=== PATIENT | female | born 1990 | race Caucasian/White ===

== ENCOUNTER 2022-03-06 09:51 | Inpatient (IN) | payer BC ==
[~2022-03-06] VITALS: Ht 162.6 cm; Wt 63.5 kg
[2022-03-06] MEDS ORDERED: ONDANSETRON HCL INJ 2MG/ML 2ML 2 MG/ML VIAL IV STA (10:06)
[2022-03-06] MEDS ORDERED: SODIUM CHLORIDE 0.9% 500ML 500 ML IV ONE (10:30)
[2022-03-06 10:35] LABS: BASOPHILS % 0.3 % (0.0-1.0); EOSINOPHILS % 0.3 % (0.0-6.0); HEMOGLOBIN 16.5 g/dL (12.0-16.0); LYMPHOCYTES # (AUTO) 0.7 (1.0-3.2); LYMPHOCYTES % 10.1 % (18.0-39.1); MEAN CORPUSCULAR HEMOGLOBIN 31.7 pg (28-32); MEAN CORPUSCULAR HGB CONC 32.4 g/dL (31-35); MEAN CORPUSCULAR VOLUME 97.9 fL (81-99); MONOCYTES # (AUTO) 0.3 (0.2-0.8); MONOCYTES % 4.6 % (4.4-11.3); NEUTROPHILS # (AUTO) 6.2 (2.1-6.9); NEUTROPHILS % 84.3 % (38.7-80.0); PLATELET COUNT 174 x10e3/uL (140-360); RED BLOOD COUNT 5.21 x10e6/uL (3.6-5.1); RED CELL DISTRIBUTION WIDTH 13.1 % (11.7-14.4)
[2022-03-06 10:49] LABS: INR 0.95; PARTIAL THROMBOPLASTIN TIME 29.2 seconds (23.8-35.5); PROTHROMBIN TIME 13.5 seconds (11.9-14.5)
[2022-03-06 11:15] LABS: ALANINE AMINOTRANSFERASE 11 IU/L (0-55); ALBUMIN 4.5 g/dL (3.5-5.0); ALKALINE PHOSPHATASE 61 IU/L (40-150); ANION GAP 13.3 mmol/L (8-16); BLOOD UREA NITROGEN 16 mg/dL (7-26); BUN/CREATININE RATIO 6 (6-25); CALCIUM 8.3 mg/dL (8.4-10.2); CARBON DIOXIDE 15 mmol/L (22-29); CHLORIDE 113 mmol/L (98-107); CREATINE KINASE 139 IU/L (29-168); CREATININE, SERUM 2.54 mg/dL (0.57-1.11); GLUCOSE 162 mg/dL (74-118); MAGNESIUM 3.1 MG/DL (1.3-2.1); SODIUM 139 mmol/L (136-145)
[2022-03-06 11:22] LABS: POTASSIUM 2.3 mmol/L (3.5-5.1)
[2022-03-06] MEDS ORDERED: POTASSIUM CHLORIDE 20 MEQ TAB CR PO STA (11:34)
[2022-03-06] MEDS: POTASSIUM CHLORIDE 10MEQ/100ML 100 ML IV SCH ×4 (11:55→19:28)
[2022-03-06] MEDS ORDERED: SODIUM CHLORIDE 0.9% 1000ML 1,000 ML IV ONE (12:00)
[2022-03-06 12:01] LABS: CLARITY,URINE CLOUDY (CLEAR); COLOR,URINE YELLOW (YELLOW); KETONES,URINE NEGATIVE (NEGATIVE); LEUKOCYTE ESTERASE ,URINE SMALL (NEGATIVE); NITRITE,URINE POSITIVE (NEGATIVE); PROTEIN,URINE DIPSTICK 2+ (NEGATIVE); URINE UROBILINOGEN 0.2 mg/dL (0.2 - 1)
[2022-03-06] MEDS ORDERED: ONDANSETRON HCL INJ 2MG/ML 2ML 2 MG/ML VIAL IV PRN (12:30)
[2022-03-06 12:49] LABS: BACTERIA,URINE MANY /HPF; WBC,URINE (MAN) >50 /HPF (0-5)
[2022-03-06 12:50] LABS: TRICHOMONAS,URINE FEW
[2022-03-06 12:51] LABS: EPITHELIAL CELLS,URINE FEW /LPF
[2022-03-06 13:15] LABS: THYROID STIMULATING HORMONE 158.742 uIU/mL (0.350-4.940)
[2022-03-06] MEDS ORDERED: METRONIDAZOLE 500 MG TAB PO ONE (15:15)
[2022-03-06] MEDS ORDERED: KCL 40MEQ/0.9% SOD CHL 1,000 ML IV SCH (15:30)
[2022-03-06 15:34] VITALS: BP 99/70
[2022-03-06 15:36] LABS: AMPHETAMINES SCREEN,URINE NEGATIVE (NEGATIVE); BENZODIAZEPINES SCREEN,URINE POSITIVE (NEGATIVE); PHENCYCLIDINE SCREEN,URINE NEGATIVE (NEGATIVE)
[2022-03-06] MEDS ORDERED: AMILORIDE HCL 5 MG TAB PO ONE (16:00)
[2022-03-06 16:05] VITALS: BP 110/65
[2022-03-06] MEDS ORDERED: POTASSIUM99 M1 PO (16:16)
[2022-03-06 16:18] LABS: FREE THYROXINE INDEX 0.9894 (1.4-3.8)
[2022-03-06] MEDS ORDERED: DOXYCYCLINE HYCLATE TABLET 100 MG TAB PO SCH (17:00)
[2022-03-06 17:23] LABS: POTASSIUM,URINE 19.4 mmol/L
[2022-03-06] MEDS: SODIUM BICARBONATE 650 MG TAB PO SCH ×2 (17:43→22:36)
[2022-03-06] MEDS: POTASSIUM CHL 40 MEQ in SODIUM CHLORIDE 0.9% 1000ML 1,000 ML IV SCH (17:45)
[2022-03-06 17:51] LABS: THYROID STIMULATING HORMONE 151.354 uIU/mL (0.350-4.940)
[2022-03-06] MEDS ORDERED: LEVOTHYROXINE SODIUM 100 MCG/VIAL IV SCH (18:00)
[2022-03-06] MEDS ORDERED: LORAZEPAM INJ 2 MG/ML VIAL IV PRN ×2 (18:30)
[2022-03-06] MEDS ORDERED: ACETAMINOPHEN 325 MG TAB PO PRN (18:30)
[2022-03-06] MEDS: DIAZEPAM 5 MG TAB PO SCH ×2 (18:45→22:35)
[2022-03-06] MEDS ORDERED: SODIUM CHLORIDE 0.9% 100 ML ONE (18:50)
[2022-03-06] MEDS ORDERED: LEVOTHYROXINE SODIUM 100 MCG/VIAL IV ONE (19:00)
[2022-03-06] MEDS ORDERED: DIAZEPAM INJ 5 MG/ML 2 ML IV PRN (19:45)
[2022-03-06 20:00] VITALS: BP_SYST 110; BP_SYST 95; BP_DIAS 55; BP_DIAS 65
[2022-03-06 21:04] LABS: ANION GAP 11.8 mmol/L (8-16); CALCIUM 7.9 mg/dL (8.4-10.2); CREATININE, SERUM 1.86 mg/dL (0.57-1.11); PHOSPHORUS 1.3 MG/DL (2.3-4.7)
[2022-03-06 21:06] LABS: POTASSIUM 2.8 mmol/L (3.5-5.1)
[2022-03-06] MEDS ORDERED: LEVOTHYROXINE SODIUM 100 MCG/VIAL ONE (22:09)
[2022-03-06] MEDS: METRONIDAZOLE 500 MG TAB PO SCH (22:52)
[2022-03-06 23:32] LABS: SALICYLATE < 5.0 mg/dL (0-30)
[2022-03-07] VITALS (9 sets, daily range): BP systolic 90–111; BP diastolic 44–70
[2022-03-07 04:49] LABS: BASOPHILS % 0.2 % (0.0-1.0); EOSINOPHILS % 0.5 % (0.0-6.0); HEMATOCRIT 41.4 % (34.2-44.1); HEMOGLOBIN 13.5 g/dL (12.0-16.0); LYMPHOCYTES # (AUTO) 1.3 (1.0-3.2); LYMPHOCYTES % 14.5 % (18.0-39.1); MEAN CORPUSCULAR HGB CONC 32.6 g/dL (31-35); MEAN CORPUSCULAR VOLUME 98.1 fL (81-99); MONOCYTES # (AUTO) 0.7 (0.2-0.8); NEUTROPHILS # (AUTO) 6.7 (2.1-6.9); NEUTROPHILS % 76.5 % (38.7-80.0); PLATELET COUNT 160 x10e3/uL (140-360); RED BLOOD COUNT 4.22 x10e6/uL (3.6-5.1); RED CELL DISTRIBUTION WIDTH 13.2 % (11.7-14.4)
[2022-03-07 05:10] LABS: ALBUMIN 3.5 g/dL (3.5-5.0); ALBUMIN/GLOBULIN RATIO 1.1 (0.8-2.0); CALCIUM 7.2 mg/dL (8.4-10.2); CREATININE, SERUM 1.84 mg/dL (0.57-1.11); MAGNESIUM 2.7 MG/DL (1.3-2.1)
[2022-03-07] MEDS: LEVOTHYROXINE SODIUM 88 MCG TAB PO SCH (06:05)
[2022-03-07] MEDS: POTASSIUM CHL 40 MEQ in SODIUM CHLORIDE 0.9% 1000ML 1,000 ML IV SCH (06:13)
[2022-03-07] MEDS ORDERED: SODIUM BICARBONATE INJ 150 ML in DEXTROSE 5% 1,000 ML IV SCH (09:00)
[2022-03-07] MEDS ORDERED: POTASSIUM CHLORIDE 10MEQ/100ML 200 ML IV SCH (09:00)
[2022-03-07] MEDS: SODIUM BICARBONATE 650 MG TAB PO SCH ×3 (09:26→21:46)
[2022-03-07] MEDS: DIAZEPAM 5 MG TAB PO SCH ×3 (09:26→21:46)
[2022-03-07] MEDS: METRONIDAZOLE 500 MG TAB PO SCH ×2 (09:26→21:46)
[2022-03-07] MEDS: SODIUM BICARBONATE 8.4% 150 ML in DEXTROSE 5% 1,000 ML IV SCH (09:27)
[2022-03-07] MEDS: DEXAMETHASONE 4 MG TAB PO SCH ×2 (12:51→21:46)
[2022-03-07] MEDS: POTASSIUM CHLORIDE 10MEQ/100ML 100 ML IV SCH ×4 (15:52→22:00)
[2022-03-08] VITALS (8 sets, daily range): BP systolic 98–101; BP diastolic 53–68
[2022-03-08] MEDS: POTASSIUM CHLORIDE 10MEQ/100ML 100 ML IV SCH ×6 (02:00→09:05)
[2022-03-08] MEDS ORDERED: CEPHALEXIN500 MG PO (03:35)
[2022-03-08] MEDS ORDERED: SODIUM BICARBO650 MG PO (03:35)
[2022-03-08] MEDS ORDERED: METRONIDAZOLE500 MG PO (03:35)
[2022-03-08] MEDS ORDERED: Levothyroxine Sodium PO (03:35)
[2022-03-08] MEDS ORDERED: DIAZEPAM5 MG PO (03:35)
[2022-03-08] MEDS: LEVOTHYROXINE SODIUM 88 MCG TAB PO SCH (05:50)
[2022-03-08 06:25] LABS: ALBUMIN 3.7 g/dL (3.5-5.0); ALBUMIN/GLOBULIN RATIO 1.1 (0.8-2.0); CALCIUM 7.5 mg/dL (8.4-10.2); CREATININE, SERUM 1.87 mg/dL (0.57-1.11)
[2022-03-08] MEDS: DIAZEPAM 5 MG TAB PO SCH ×3 (09:05→17:48)
[2022-03-08] MEDS: SODIUM BICARBONATE 650 MG TAB PO SCH ×3 (09:05→20:49)
[2022-03-08] MEDS: METRONIDAZOLE 500 MG TAB PO SCH ×2 (09:05→20:48)
[2022-03-08] MEDS ORDERED: POTASSIUM CHLORIDE 20MEQ/100ML 300 ML IV ONE (11:45)
[2022-03-08] MEDS ORDERED: POTASSIUM CHLORIDE 20MEQ/100ML 200 ML IV ONE (13:15)
[2022-03-08] MEDS ORDERED: SODIUM CHLORIDE 0.9% 1000ML 1,000 ML ONE (13:30)
[2022-03-08] MEDS: SODIUM BICARBONATE 8.4% 150 ML in DEXTROSE 5% 1,000 ML IV SCH ×2 (15:00→19:30)
[2022-03-08] MEDS ORDERED: POTASSIUM CHLORIDE 20 MEQ TAB CR PO STA ×2 (19:57→23:06)
[2022-03-08] MEDS: POTASSIUM CHLORIDE 20MEQ/100ML 100 ML IV ONE (20:49)
[2022-03-09] VITALS: BP 93/66
[2022-03-09] MEDS: POTASSIUM CHLORIDE 20MEQ/100ML 100 ML IV ONE (01:17)
[2022-03-09] MEDS ORDERED: POTASSIUM CHLORIDE 20 MEQ TAB CR PO ONE (02:00)
[2022-03-09 04:00] VITALS: BP 93/56
[2022-03-09] MEDS: LEVOTHYROXINE SODIUM 88 MCG TAB PO SCH (05:45)
[2022-03-09 06:47] LABS: ALBUMIN 3.4 g/dL (3.5-5.0); ALBUMIN/GLOBULIN RATIO 1.2 (0.8-2.0); ANION GAP 11.2 mmol/L (8-16); CALCIUM 7.1 mg/dL (8.4-10.2); CREATININE, SERUM 1.61 mg/dL (0.57-1.11); POTASSIUM 3.2 mmol/L (3.5-5.1)
[2022-03-09] MEDS ORDERED: POTASSIUM CHLORIDE 20 MEQ TAB CR PO STA (07:23)
[2022-03-09 08:22] VITALS: BP 90/62
[2022-03-09 09:00] VITALS: BP 90/62
[2022-03-09] MEDS: SODIUM BICARBONATE 650 MG TAB PO SCH (09:41)
[2022-03-09] MEDS: DIAZEPAM 5 MG TAB PO SCH (09:41)
[2022-03-09] MEDS: METRONIDAZOLE 500 MG TAB PO SCH (09:41)
[2022-03-10] MEDS ORDERED: PHOSPHORUS 250 MG TAB PO SCH (09:00)
== END 2022-03-09 13:17 | disposition home or self-care (01) | DRG 100 ==
LOC: ER 10:07 → ERHOLD 12:21 → MED/SURG 15:25 → MED/SURG2 03-07 13:29
PROVIDERS: ADMIT Internal Medicine; ATTEND Internal Medicine
DX: G40.509 Epileptic seizures related to external causes, not intractable, without status epilepticus (principal); N17.0 Acute kidney failure with tubular necrosis; F11.23 Opioid dependence with withdrawal; N39.0 Urinary tract infection, site not specified; Q61.5 Medullary cystic kidney; E87.2 Acidosis; E87.6 Hypokalemia; N25.89 Other disorders resulting from impaired renal tubular function; B96.20 Unspecified Escherichia coli [E. coli] as the cause of diseases classified elsewhere; A64 Unspecified sexually transmitted disease; Z20.822 Contact with and (suspected) exposure to COVID-19; E03.9 Hypothyroidism, unspecified; R00.1 Bradycardia, unspecified; I12.9 Hypertensive chronic kidney disease with stage 1 through stage 4 chronic kidney disease, or unspecified chronic kidney disease; N18.9 Chronic kidney disease, unspecified; T42.4X5A Adverse effect of benzodiazepines, initial encounter
CPT/HCPCS: 36415; 70450; 71045; 74176; 80048; 80053; 80307; 80329; 81001; 82533; 82550; 82553; 82948; 83735; 84100; 84132; 84133; 84300; 84436; 84443; 84479; 84484; 84702; 85025; 85610; 85730; 87086; 87186; 93005; 94760; 96361; 99284; J0696; J2405; J3480; J7030; J7040; J7050; J7070